=== PATIENT | female | born 1990 | race Caucasian/White ===

== ENCOUNTER → 2016-05-07 | Outpatient (REF) | payer OTHER | LOC: M SFHCWAGY 14:15 | PROVIDERS: ATTEND Family Medicine | DX: Z12.4 Encounter for screening for malignant neoplasm of cervix (principal); Z11.3 Encounter for screening for infections with a predominantly sexual mode of transmission | CPT/HCPCS: 87491; 87591; G0123 ==

== ENCOUNTER → 2019-04-17 | Outpatient (REF) | payer OTHER ==
[2019-04-17 11:43] LABS: HEMATOCRIT 40.7 % (36.0-47.0); HEMOGLOBIN 13.2 g/dl (12.0-15.5); MEAN CORPUSCULAR HEMOGLOBIN 29.7 pg (27.0-33.0); MEAN CORPUSCULAR HGB CONC 32.4 g/dl (32.0-36.5); MEAN CORPUSCULAR VOLUME 91.7 fl (80.0-96.0); PLATELET COUNT, AUTOMATED 191 10^3/uL (150-450); RED BLOOD COUNT 4.44 10^6/uL (4.00-5.40); WHITE BLOOD COUNT 7.2 10^3/uL (4.0-10.0)
[2019-04-17 11:58] LABS: ALBUMIN 3.8 GM/DL (3.2-5.2); ALT/SGPT 14 U/L (12-78); BILIRUBIN,TOTAL 0.4 MG/DL (0.2-1.0); BLOOD UREA NITROGEN 12 MG/DL (7-18); CALCIUM LEVEL 8.7 MG/DL (8.5-10.1); CARBON DIOXIDE LEVEL 22 MEQ/L (21-32); CHLORIDE LEVEL 108 MEQ/L (98-107); CHOLESTEROL LEVEL 176 MG/DL (<200); CHOLESTEROL RISK RATIO 2.046 (<5); CREATININE FOR GFR 0.66 MG/DL (0.55-1.30); GLOMERULAR FILTRATION RATE > 60.0 (>60); GLUCOSE, FASTING 100 MG/DL (70-100); HDL CHOLESTEROL 86 MG/DL (>40); LDL CHOLESTEROL 72 MG/DL (<100); NON-HDL-C 90 MG/DL; SODIUM LEVEL 138 MEQ/L (136-145); TOTAL PROTEIN 6.9 GM/DL (6.4-8.2); TRIGLYCERIDES LEVEL 88 MG/DL (<150)
== END ==
LOC: M SFHCPLAZ 10:06
PROVIDERS: ATTEND Nurse Practitioner Adult Health
DX: Z00.00 Encounter for general adult medical examination without abnormal findings (principal); Z83.49 Family history of other endocrine, nutritional and metabolic diseases; Z13.220 Encounter for screening for lipoid disorders

== ENCOUNTER → 2020-02-06 | Outpatient (REF) | payer OTHER | LOC: M PLALAB 10:41 | PROVIDERS: ATTEND Obstetrics & Gynecology | DX: Z34.01 Encounter for supervision of normal first pregnancy, first trimester (principal); Z3A.00 Weeks of gestation of pregnancy not specified; Z53.9 Procedure and treatment not carried out, unspecified reason ==

== ENCOUNTER → 2020-02-20 | Outpatient (REF) | payer OTHER ==
[2020-02-20 13:03] LABS: HEMATOCRIT 40.3 % (36.0-47.0); HEMOGLOBIN 13.1 g/dl (12.0-15.5); MEAN CORPUSCULAR HEMOGLOBIN 30.2 pg (27.0-33.0); MEAN CORPUSCULAR HGB CONC 32.5 g/dl (32.0-36.5); MEAN CORPUSCULAR VOLUME 92.9 fl (80.0-96.0); PLATELET COUNT, AUTOMATED 242 10^3/uL (150-450); RED BLOOD COUNT 4.34 10^6/uL (4.00-5.40); WHITE BLOOD COUNT 9.9 10^3/uL (4.0-10.0)
[2020-02-20 14:16] LABS: HEPATITIS C VIRUS ABY INDEX < 0.0 INDEX (<0.8); HIV 1&2 SCREEN CENTAUR NEGATIVE (NEGATIVE)
[2020-02-20 14:55] LABS: CHLAMYDIA DNA AMPLIFICATION NEGATIVE (NEGATIVE); GC DNA AMPLIFICATION NEGATIVE (NEGATIVE)
== END ==
LOC: M PLALAB 08:08 → M SFHCADAM 08:20
PROVIDERS: ATTEND Obstetrics & Gynecology
DX: Z34.01 Encounter for supervision of normal first pregnancy, first trimester (principal); Z3A.00 Weeks of gestation of pregnancy not specified

== ENCOUNTER → 2020-03-16 | Outpatient (CLI) | payer SELFPAY | LOC: M LABSMTC 11:05 | PROVIDERS: ATTEND Pediatrics | DX: Z20.828 Contact with and (suspected) exposure to other viral communicable diseases (principal) ==

== ENCOUNTER → 2020-04-14 | Outpatient (CLI) | payer OTHER ==
--- NOTE | 2020-04-15 16:32 | REP ---
INDICATION: ANATOMY COMPARISON: None. TECHNIQUE: Transabdominal obstetrical ultrasound with color Doppler evaluation. FINDINGS: Examination demonstrates a single live intrauterine in cephalic presentation. motion is identified by technologist. Placenta is noted anterior and grade 1 without evidence for placenta previa or abruption. Amniotic fluid volume is normal. Cervix measures 3.7 cm in length and appears closed.. Gestational age by current measurements 19 weeks 4 days with ISHAN 09/04/2020. FHR equals 139 beats per minute. BPD: 4.5 cm 19 weeks 4 days HC: 16.7 cm 19 weeks 3 days AC: 14.2 cm 19 weeks 4 days FL: 2.9 cm 19 weeks 0 days HL: 3.1 cm there is 20 weeks 2 days HC/AC: 1.18 Estimated weight 286 grams (33rdpercentile). Anatomical assessment demonstrates normal structures including cranium, cavum, cerebellum/posterior fossa, facial features, lungs, ventricular outflow tracts, diaphragm, stomach, cord insertion/three-vessel cord, kidneys/bladder, spine, and extremities. Echogenic focus within the left cardiac ventricle likely prominent chordae tendineae. A 3 mm left choroid plexus cyst is identified. IMPRESSION: Single live intrauterine in cephalic presentation demonstrating appropriate estimated weight. Anatomical limitations as noted above warrant follow-up. <Electronically signed by Kervin Chiang > 04/15/20 [id number]
== END ==
LOC: M WHC 13:53
PROVIDERS: ATTEND Specialist
DX: Z34.02 Encounter for supervision of normal first pregnancy, second trimester (principal); Z36.89 Encounter for other specified antenatal screening; Z3A.19 19 weeks gestation of pregnancy

== ENCOUNTER → 2020-06-03 | Outpatient (REF) | payer OTHER | LOC: M PLALAB 09:41 | PROVIDERS: ATTEND Obstetrics & Gynecology | DX: Z3A.26 26 weeks gestation of pregnancy (principal) ==

== ENCOUNTER → 2020-06-17 | Outpatient (REF) | payer OTHER ==
[2020-06-17 17:26] LABS: HEMATOCRIT 34.3 % (36.0-47.0); HEMOGLOBIN 11.5 g/dl (12.0-15.5); MEAN CORPUSCULAR HEMOGLOBIN 31.4 pg (27.0-33.0); MEAN CORPUSCULAR HGB CONC 33.5 g/dl (32.0-36.5); MEAN CORPUSCULAR VOLUME 93.7 fl (80.0-96.0); PLATELET COUNT, AUTOMATED 205 10^3/uL (150-450); RED BLOOD COUNT 3.66 10^6/uL (4.00-5.40); WHITE BLOOD COUNT 12.6 10^3/uL (4.0-10.0)
== END ==
LOC: M PLALAB 15:03 → M SFHCADAM 16:04
PROVIDERS: ATTEND Obstetrics & Gynecology
DX: Z3A.26 26 weeks gestation of pregnancy (principal)

== ENCOUNTER → 2020-06-18 | Outpatient (REF) | payer OTHER | LOC: M PLALAB 13:27 | PROVIDERS: ATTEND Obstetrics & Gynecology | DX: O99.810 Abnormal glucose complicating pregnancy (principal) ==

== ENCOUNTER → 2020-06-24 | Outpatient (CLI) | payer OTHER | LOC: M LAB 06:49 | PROVIDERS: ATTEND Obstetrics & Gynecology | DX: O99.810 Abnormal glucose complicating pregnancy (principal); Z3A.00 Weeks of gestation of pregnancy not specified ==

== ENCOUNTER → 2020-08-12 | Outpatient (REF) | payer OTHER | LOC: M SFHCWAGY 09:55 | PROVIDERS: ATTEND Advanced Practice Midwife | DX: Z34.93 Encounter for supervision of normal pregnancy, unspecified, third trimester (principal); Z3A.36 36 weeks gestation of pregnancy ==

== ENCOUNTER → 2020-09-01 | Outpatient (CLI) | payer OTHER | LOC: M LABSMTC 09:39 | PROVIDERS: ATTEND Specialist | DX: Z36.89 Encounter for other specified antenatal screening (principal); Z20.828 Contact with and (suspected) exposure to other viral communicable diseases; Z3A.39 39 weeks gestation of pregnancy ==

== ENCOUNTER → 2020-09-08 | Outpatient (CLI) | payer OTHER | LOC: M LABSMTC 09:45 | PROVIDERS: ATTEND Specialist | DX: Z20.822 Contact with and (suspected) exposure to COVID-19 (principal) ==

== ENCOUNTER 2020-09-11 04:55 | Inpatient (IN) | payer OTHER ==
[2020-09-11] VITALS (35 sets, daily range): BP systolic 89–120; BP diastolic 50–77
[~2020-09-11] VITALS: Ht 157.5 cm; Wt 65.9 kg
[2020-09-11] MEDS ORDERED: PRENTAB9 PO (05:29)
[2020-09-11] MEDS ORDERED: LIDOCAINE 1% MDV 20ML VIAL INFIL PRN (06:45)
[2020-09-11] MEDS ORDERED: OXYTOCIN DRIP 30 UNITS in IV 1 EA IV PRN (06:45)
[2020-09-11] MEDS ORDERED: OXYTOCIN DRIP 30 UNITS in IV 1 EA IV SCH ×2 (06:45→16:20)
[2020-09-11] MEDS ORDERED: OXYTOCIN INJ 10 UNITS/ML VIAL (J2590) IM PRN (06:45)
[2020-09-11] MEDS ORDERED: METHYLERGONOVINE MALEATE 0.2 MG/ML VIAL (J2210) IM PRN (06:45)
--- NOTE | 2020-09-11 07:22 | HPE ---
HISTORY AND PHYSICAL DATE OF ADMISSION: 09/11/2020 HISTORY OF PRESENT ILLNESS: Bishop is a 29-year-old 1 para 0 at 40 and 3/7th weeks gestation with an EDC of 09/08/2020 based on first trimester ultrasound. She presents to Labor and Delivery today with a report of onset of contractions at about 2000 on 09/10/2020 that progressively worsened overnight and became closer together. She does report some bloody show. Denies leakage of fluid. The fetus has been active. Her care was initiated at [facility] in the first trimester. Her course was complicated by her partner being HSV-2 positive. She denies any signs or symptoms of outbreak for herself. OBSTETRIC HISTORY: Primigravida. OBSTETRIC LABS: A positive, antibody screen negative, syphilis negative, gonorrhea and chlamydia negative, hep B negative, hep C negative, HIV negative, rubella immune. Gestational diabetic screening was abnormal at 142. Three hour glucose tolerance test normal. Fasting 93, one hour 145, two hour 121, three hour 110. Urine culture showed no growth. She is GBS negative and her COVID-19 is negative as well. PAST MEDICAL HISTORY: Depression. Benign skin lesions removed, pre-melanoma removed, irregular menstrual cycles, childhood varicella. PAST SURGICAL HISTORY: Excision of mole. FAMILY HISTORY: Melanoma, basal cell carcinoma, depression. SOCIAL HISTORY: The patient is , her is at bedside and supportive. She is a nonsmoker. She denies alcohol and drug use. She denies any history of sexually transmitted infections and she denies a history of abuse, physical, sexual and emotional. ALLERGIES: Bees. CURRENT MEDICATIONS: vitamin. OBJECTIVE: Temperature 98.4, pulse 71, respirations 14, blood pressure is 119/74. She is alert and oriented x3. She does appear uncomfortable during her contractions. They do palpate moderate. heart rate is 135 with moderate variability, positive accelerations, negative decelerations, contractions appear to be every 3 to 6 minutes. Her abdomen is gravid, cephalic presentation, estimated weight 7 pounds. Sterile vaginal exam: 3 to 4 cm dilated, 90% effaced, -2 station, posterior, normal amount of bloody show with exam. ASSESSMENT: Intrauterine at 40 and 3/7th weeks. heart rate Category 1, labor. PLAN: Admit the patient to Labor and Delivery, routine laboratories, out of bed ad santosh, clear liquid diet at this time. The patient does desire an epidural when she is more uncomfortable with labor. I did review Pitocin augmentation due to the spacing of her contractions. I reviewed risks, benefits and alternatives with the patient and her . All of their questions have been answered and they are agreeable to Pitocin augmentation. She has been verbally consented for emergency surgery and blood products if they are necessary. I do anticipate continued labor progress and a normal spontaneous vaginal delivery.
[2020-09-11] MEDS: LR 1,000 ML IV SCH ×3 (08:15→13:36)
[2020-09-11 08:39] LABS: HEMATOCRIT 36.8 % (36.0-47.0); MEAN CORPUSCULAR HEMOGLOBIN 28.9 pg (27.0-33.0); MEAN CORPUSCULAR HGB CONC 32.6 g/dl (32.0-36.5); MEAN CORPUSCULAR VOLUME 88.7 fl (80.0-96.0); PLATELET COUNT, AUTOMATED 218 10^3/uL (150-450); RED BLOOD COUNT 4.15 10^6/uL (4.00-5.40); WHITE BLOOD COUNT 16.5 10^3/uL (4.0-10.0)
[2020-09-11] MEDS ORDERED: FENTANYL 2MCG/ML ROPIVACAINE 0.2% IN 0.9% NACL 100ML IVBAG As Ordered ONE (08:51)
[2020-09-11] MEDS ORDERED: EPIDURAL/PCA KEYS XX PRN (09:50)
[2020-09-11] MEDS ORDERED: REFRIGERATOR IV KEYS XX PRN (09:50)
[2020-09-11] MEDS ORDERED: diphenhydrAMINE 50MG/ML VIAL (J1200) IV PRN (09:50)
[2020-09-11] MEDS ORDERED: NALOXONE INJ 0.4MG/1ML VIAL (J2310 PER 1MG) IV PRN (09:50)
[2020-09-11] MEDS ORDERED: ONDANSETRON 4MG/2ML VIAL IV PRN (09:50)
[2020-09-11] MEDS ORDERED: EPIDURAL COMMENT XX SCH (09:50)
[2020-09-11] MEDS ORDERED: LACTATED RINGER'S 1000 ML IV PRN (09:50)
[2020-09-11] MEDS ORDERED: FENTANYL/ROPIVACAINE/NACL BAG 100 ML EPIDURAL SCH (09:50)
[2020-09-11] MEDS: ePHEDrine SULFATE 25 MG/5 ML(5MG/ML) SYRINGE IV PRN ×2 (11:11→12:50)
[2020-09-11] MEDS ORDERED: DOCUSATE SODIUM 100MG CAPSULE PO PRN (16:20)
[2020-09-11] MEDS ORDERED: ACETAMINOPHEN 500 MG TAB PO PRN (16:20)
[2020-09-11] MEDS ORDERED: ANUSOL HC CREAM 30GM TOP PRN (16:20)
[2020-09-11] MEDS ORDERED: MOM 30ML SUSPENSION UDC PO PRN (16:20)
[2020-09-11] MEDS ORDERED: DIBUCAINE 1% OINTMENT 30GM TOP PRN (16:20)
[2020-09-11] MEDS ORDERED: RHOGAM 300 MCG (1500 IU) INJ (J2790) IM SCH (16:20)
[2020-09-11] MEDS ORDERED: ACETAMINOPHEN TAB 650MG DOSE (2X325MG) PO PRN (16:20)
[2020-09-11] MEDS ORDERED: IBUPROFEN 800 MG TAB PO PRN (16:20)
[2020-09-11] MEDS ORDERED: MEASLES,MUMPS,RUBELLA VACCINE INJ (MMR-II) (90707) SC SCH (16:20)
[2020-09-11] MEDS ORDERED: METHYLERGONOVINE MALEATE 0.2 MG TAB PO PRN (16:20)
--- NOTE | 2020-09-11 16:32 | DNPDOC ---
[facility] Delivery Note Delivery Note DATE OF DELIVERY: 09/11/2020 TIME OF : 1553 GENDER: Male. APGARS: 9 and 9. WEIGHT: 3310 grams or 7 pounds 5ounces. LACERATIONS:1MLL ANESTHESIA: epidural ESTIMATED BLOOD LOSS: 200ml COUNTS: 5 laparotomy sponges accounted for prior to after delivery. 1 sharps removed from delivery field. DELIVERY NOTE: On 09/11/2020 at [id number], a 29-year-old 1 now para 1, had a spontaneous vaginal delivery of viable male infant, Apgars, 9 and 9 and weight 3310 g or 7 lbs. 5 oz. Head was delivered occiput anterior (OA), followed by delivery of right nuchal arm, shoulders and corpus. Infant was handed to mom with a good cry. Cord was clamped times two and was cut by sup port person under my direction. Placenta was then drained and delivered grossly intact. A premixed bag of 500 mL of normal saline with 30 units of Pitocin was then bolused along with uterine massage until the uterus was firm. On inspection there was a 1MLL that was repaired with 3-0 Vicryl after infusion with 1% lidocaine. On reinspection, cervix, vagina, perineum was grossly intact and hemostatic. Mom and baby in recovery on stable condition. CHIP MAYA MD. Sep 11, 2020 16:32
[2020-09-12] MEDS: IBUPROFEN 600MG TAB PO PRN ×2 (00:37→12:42)
[2020-09-12 06:05] VITALS: BP 108/58
[2020-09-12] MEDS: PRENATAL VITAMINS CHEWABLE TABLET PO SCH (07:57)
--- NOTE | 2020-09-12 08:58 | IPNPDOC ---
Text Note Date of Service The patient was seen on 09/12/20. NOTE PP #1 Feels well. Adequate pain management. Voiding VSS, afebrile, normotensive Breasts soft, nipples intact Fundus firm, NT, down 1 FB Lochia rubra light without odor Perineum intact PP #1 routine care. anticipate D/C in am VS,Fishbone, I+O VS, Fishbone, I+O Vital Signs Date Time Temp Pulse Resp B/P (MAP) Pulse Ox O2 Delivery O2 Flow Rate FiO2 09/12/20 06:05 98.6 82 18 108/58 (75) I&O- Last 24 Hours up to 6 AM 09/12/20 06:00 Intake Total 2732.7 ml Output Total 1775 ml Balance 957.7 ml Anna Marcelino CNM Sep 12, 2020 08:58
[2020-09-12 18:04] VITALS: BP 112/60
[2020-09-13 06:00] VITALS: BP 100/52
[2020-09-13] MEDS: PRENATAL VITAMINS CHEWABLE TABLET PO SCH (08:48)
== END 2020-09-13 10:43 | disposition home or self-care (01) | DRG 807 ==
LOC: M LDO 04:55 → M LDI 06:38 → M OBS 18:55
PROVIDERS: ADMIT Advanced Practice Midwife; ATTEND Obstetrics & Gynecology
PROC: 10E0XZZ Delivery of Products of Conception, External Approach (ICD-10-PCS; principal; 2020-09-11)
PROC: 0HQ9XZZ Repair Perineum Skin, External Approach (ICD-10-PCS; 2020-09-11)
DX: O48.0 Post-term pregnancy (principal); Z37.0 Single live birth; Z3A.40 40 weeks gestation of pregnancy; O70.0 First degree perineal laceration during delivery; O69.82X0 Labor and delivery complicated by other cord entanglement, without compression, not applicable or unspecified

== ENCOUNTER → 2021-03-16 | Outpatient (REF) ==
[~2021-03-16] MED LIST: PRENTAB9 PO
== END ==
LOC: M LABSMTC 13:13
PROVIDERS: ATTEND Pediatrics
DX: Z20.822 Contact with and (suspected) exposure to COVID-19 (principal)

== ENCOUNTER 2021-12-29 12:37 | Emergency (ER) | payer OTHER ==
[~2021-12-29] VITALS: Ht 157.5 cm; Wt 50.1 kg
[2021-12-29 14:07] LABS: BASO % 0.3 % (0.0-1.0); EOS % 0.4 % (0.0-3.0); HEMATOCRIT 39.5 % (36.0-47.0); LYMPH # 1.9 10^3/uL (1.5-5.0); MEAN CORPUSCULAR HEMOGLOBIN 29.6 pg (27.0-33.0); MEAN CORPUSCULAR HGB CONC 32.9 g/dl (32.0-36.5); MONO # 0.5 10^3/uL (0.0-0.8); MONO % 5.2 % (2.0-8.0); NEUTROPHILS # 7.4 10^3/uL (1.5-8.5); NEUTROPHILS % 74.8 % (36.0-66.0); PLATELET COUNT, AUTOMATED 264 10^3/uL (150-450); RED BLOOD COUNT 4.39 10^6/uL (4.00-5.40); WHITE BLOOD COUNT 9.9 10^3/uL (4.0-10.0)
[2021-12-29 14:50] LABS: BLOOD UREA NITROGEN 6 MG/DL (7-18); CALCIUM LEVEL 9.1 MG/DL (8.5-10.1); CARBON DIOXIDE LEVEL 26 MEQ/L (21-32); CHLORIDE LEVEL 110 MEQ/L (98-107); CREATININE FOR GFR 0.66 MG/DL (0.55-1.30); GLOMERULAR FILTRATION RATE > 60.0 (>60); GLUCOSE, FASTING 116 MG/DL (70-100); HCG, SERUM QUANTITATIVE 60 MIU/ML; POTASSIUM SERUM 3.7 MEQ/L (3.5-5.1); SODIUM LEVEL 140 MEQ/L (136-145)
[2021-12-29 15:53] VITALS: BP 127/80
== END 2021-12-29 15:53 | disposition home or self-care (01) ==
LOC: M ED 12:37
DX: O20.9 Hemorrhage in early pregnancy, unspecified (principal); Z91.030 Bee allergy status; Z79.810 Long term (current) use of selective estrogen receptor modulators (SERMs); Z3A.01 Less than 8 weeks gestation of pregnancy

== ENCOUNTER → 2021-12-31 | Outpatient (CLI) | payer OTHER | LOC: M LABDRWAD 15:12 | PROVIDERS: ATTEND Physician Assistant Medical | DX: O46.90 Antepartum hemorrhage, unspecified, unspecified trimester (principal); Z3A.00 Weeks of gestation of pregnancy not specified ==

== ENCOUNTER → 2022-01-06 | Outpatient (REF) | payer OTHER | LOC: M SFHCADAM 14:54 | PROVIDERS: ATTEND Obstetrics & Gynecology | DX: O36.80X0 Pregnancy with inconclusive fetal viability, not applicable or unspecified (principal); Z3A.00 Weeks of gestation of pregnancy not specified ==

== ENCOUNTER 2022-03-23 19:08 | Emergency (ER) | payer OTHER ==
[~2022-03-23] VITALS: Ht 157.5 cm; Wt 50.0 kg
[2022-03-23 19:10] VITALS: BP 113/73
[2022-03-23 21:45] LABS: BASO # 0.1 10^3/uL (0.0-0.2); BASO % 0.4 % (0.0-1.0); EOS # 0.2 10^3/uL (0.0-0.5); EOS % 1.4 % (0.0-3.0); HEMATOCRIT 36.8 % (36.0-47.0); HEMOGLOBIN 12.6 g/dl (12.0-15.5); LYMPH # 3.5 10^3/uL (1.5-5.0); LYMPH % 31.3 % (24.0-44.0); MEAN CORPUSCULAR HGB CONC 34.2 g/dl (32.0-36.5); MEAN CORPUSCULAR VOLUME 87.6 fl (80.0-96.0); MONO # 0.6 10^3/uL (0.0-0.8); MONO % 5.6 % (2.0-8.0); NEUTROPHILS # 6.8 10^3/uL (1.5-8.5); PLATELET COUNT, AUTOMATED 264 10^3/uL (150-450); WHITE BLOOD COUNT 11.1 10^3/uL (4.0-10.0)
[2022-03-23 22:18] LABS: BLOOD UREA NITROGEN 12 MG/DL (9-23); CARBON DIOXIDE LEVEL 23 MMOL/L (20-31); CHLORIDE LEVEL 105 MMOL/L (98-107); CREATININE FOR GFR 0.58 MG/DL (0.55-1.30); GLOMERULAR FILTRATION RATE > 60.0 (>60); GLUCOSE, FASTING 89 MG/DL (60-100); POTASSIUM SERUM 3.8 MMOL/L (3.5-5.1); SODIUM LEVEL 137 MMOL/L (136-145)
[2022-03-24 00:08] LABS: HCG, SERUM QUANTITATIVE 13476.5 MIU/ML (<4.2)
== END 2022-03-23 23:46 | disposition left against medical advice (07) ==
LOC: M ED 19:08
DX: Z53.21 Procedure and treatment not carried out due to patient leaving prior to being seen by health care provider (principal)

== ENCOUNTER → 2022-04-29 | Outpatient (REF) | payer OTHER ==
[2022-04-29 16:30] LABS: HEMATOCRIT 38.6 % (36.0-47.0); HEMOGLOBIN 12.6 g/dl (12.0-15.5); MEAN CORPUSCULAR HEMOGLOBIN 29.5 pg (27.0-33.0); MEAN CORPUSCULAR HGB CONC 32.6 g/dl (32.0-36.5); MEAN CORPUSCULAR VOLUME 90.4 fl (80.0-96.0); PLATELET COUNT, AUTOMATED 227 10^3/uL (150-450); RED BLOOD COUNT 4.27 10^6/uL (4.00-5.40)
[2022-04-29 23:47] LABS: ALKALINE PHOSPHATASE 40 U/L (46-116); ALT/SGPT 11 U/L (7.0-40); AST/SGOT 15 U/L (<34); BILIRUBIN,TOTAL 0.5 MG/DL (0.3-1.2); BLOOD UREA NITROGEN 11 MG/DL (9-23); CARBON DIOXIDE LEVEL 26 MMOL/L (20-31); CHLORIDE LEVEL 104 MMOL/L (98-107); CHOLESTEROL LEVEL 186 MG/DL (<200); CHOLESTEROL RISK RATIO 2.04 (<5); CREATININE FOR GFR 0.62 MG/DL (0.55-1.30); GLOMERULAR FILTRATION RATE > 60.0 (>60); GLUCOSE, FASTING 84 MG/DL (60-100); NON-HDL-C 95 MG/DL; POTASSIUM SERUM 4.4 MMOL/L (3.5-5.1); SODIUM LEVEL 138 MMOL/L (136-145); TOTAL PROTEIN 7.1 G/DL (5.7-8.2); TRIGLYCERIDES LEVEL 90 MG/DL (<150)
== END ==
LOC: M SFHCPLAZ 15:04
PROVIDERS: ATTEND Nurse Practitioner Adult Health
DX: Z00.00 Encounter for general adult medical examination without abnormal findings (principal); Z13.220 Encounter for screening for lipoid disorders; Z83.49 Family history of other endocrine, nutritional and metabolic diseases

== ENCOUNTER → 2022-04-29 | Outpatient (CLI) | payer OTHER ==
[2022-05-04 16:08] LABS: BETA-2 GLYCOPROTEIN I ABY IGA <9 (0-25); BETA-2 GLYCOPROTEIN I ABY IGG <9 (0-20); BETA-2 GLYCOPROTEIN I ABY IGM <9 (0-32); CARDIOLIPIN IGA ANTIBODY <9 APL U/mL (0-11); CARDIOLIPIN IGG ANTIBODY <9 GPL U/mL (0-14); CARDIOLIPIN IGM ANTIBODY <9 MPL U/mL (0-12)
== END ==
LOC: M LABDRWAD 15:19
PROVIDERS: ATTEND Obstetrics & Gynecology
DX: N96 Recurrent pregnancy loss (principal)

== ENCOUNTER → 2022-07-08 | Outpatient (CLI) | payer OTHER ==
[2022-07-08 15:15] LABS: HEMATOCRIT 34.6 % (36.0-47.0); HEMOGLOBIN 11.6 g/dl (12.0-15.5); MEAN CORPUSCULAR HEMOGLOBIN 29.8 pg (27.0-33.0); MEAN CORPUSCULAR HGB CONC 33.5 g/dl (32.0-36.5); MEAN CORPUSCULAR VOLUME 88.9 fl (80.0-96.0); PLATELET COUNT, AUTOMATED 227 10^3/uL (150-450); RED BLOOD COUNT 3.89 10^6/uL (4.00-5.40); WHITE BLOOD COUNT 12.8 10^3/uL (4.0-10.0)
[2022-07-08 16:17] LABS: HIV 1&2 SCREEN ATELLICA NEGATIVE (NEGATIVE)
[2022-07-08 16:26] LABS: HEPATITIS C VIRUS ABY INDEX < 0.0 INDEX (<0.8)
[2022-07-08 16:39] LABS: GC DNA AMPLIFICATION NEGATIVE (NEGATIVE)
== END ==
LOC: M PLALAB 14:26
PROVIDERS: ATTEND Advanced Practice Midwife
DX: Z34.81 Encounter for supervision of other normal pregnancy, first trimester (principal)

== ENCOUNTER → 2022-09-08 | Outpatient (CLI) | payer OTHER | LOC: M WHC 14:03 | PROVIDERS: ATTEND Specialist | DX: Z34.82 Encounter for supervision of other normal pregnancy, second trimester (principal); Z3A.19 19 weeks gestation of pregnancy ==

== ENCOUNTER → 2022-10-25 | Outpatient (CLI) | payer OTHER | LOC: M WHC 06:36 | PROVIDERS: ATTEND Advanced Practice Midwife | DX: Z34.82 Encounter for supervision of other normal pregnancy, second trimester (principal) ==

== ENCOUNTER → 2022-10-29 | Outpatient (CLI) | payer OTHER ==
[2022-10-29 14:10] LABS: HEMATOCRIT 30.6 % (36.0-47.0); HEMOGLOBIN 9.9 g/dl (12.0-15.5); MEAN CORPUSCULAR HEMOGLOBIN 30.4 pg (27.0-33.0); MEAN CORPUSCULAR HGB CONC 32.4 g/dl (32.0-36.5); MEAN CORPUSCULAR VOLUME 93.9 fl (80.0-96.0); PLATELET COUNT, AUTOMATED 220 10^3/uL (150-450); RED BLOOD COUNT 3.26 10^6/uL (4.00-5.40); WHITE BLOOD COUNT 12.7 10^3/uL (4.0-10.0)
[2022-10-29 15:35] LABS: GC DNA AMPLIFICATION NEGATIVE (NEGATIVE)
== END ==
LOC: M PLALAB 10:25
PROVIDERS: ATTEND Obstetrics & Gynecology
DX: Z34.92 Encounter for supervision of normal pregnancy, unspecified, second trimester (principal)

== ENCOUNTER → 2023-01-05 | Outpatient (CLI) | payer OTHER ==
[~2023-01-05] MED LIST changes: +COLA100C5 PO; +IRON1TAB2 PO
[2023-01-05 16:14] LABS: HEMATOCRIT 32.8 % (36.0-47.0); HEMOGLOBIN 10.8 g/dl (12.0-15.5); MEAN CORPUSCULAR HEMOGLOBIN 30.5 pg (27.0-33.0); MEAN CORPUSCULAR HGB CONC 32.9 g/dl (32.0-36.5); MEAN CORPUSCULAR VOLUME 92.7 fl (80.0-96.0); PLATELET COUNT, AUTOMATED 248 10^3/uL (150-450); RED BLOOD COUNT 3.54 10^6/uL (4.00-5.40); WHITE BLOOD COUNT 13.3 10^3/uL (4.0-10.0)
== END ==
LOC: M PLALAB 14:07
PROVIDERS: ATTEND Obstetrics & Gynecology
DX: Z34.03 Encounter for supervision of normal first pregnancy, third trimester (principal); Z3A.00 Weeks of gestation of pregnancy not specified

== ENCOUNTER 2023-02-02 00:51 | Inpatient (IN) | payer OTHER ==
[~2023-02-02] VITALS: Ht 157.5 cm; Wt 67.1 kg
[2023-02-02] VITALS (49 sets, daily range): BP systolic 80–133; BP diastolic 50–78; O2SAT 98–100
[2023-02-02] MEDS ORDERED: LR 1,000 ML IV ONE (01:20)
[2023-02-02 01:56] LABS: BASO # 0.1 10^3/uL (0.0-0.2); BASO % 0.4 % (0.0-1.0); EOS # 0.1 10^3/uL (0.0-0.5); HEMOGLOBIN 11.6 g/dl (12.0-15.5); LYMPH # 2.1 10^3/uL (1.5-5.0); LYMPH % 16.2 % (24.0-44.0); MEAN CORPUSCULAR HEMOGLOBIN 30.1 pg (27.0-33.0); MEAN CORPUSCULAR HGB CONC 33.1 g/dl (32.0-36.5); MEAN CORPUSCULAR VOLUME 90.7 fl (80.0-96.0); MONO # 1.1 10^3/uL (0.0-0.8); MONO % 8.2 % (2.0-8.0); NEUTROPHILS # 9.5 10^3/uL (1.5-8.5); NEUTROPHILS % 73.6 % (36.0-66.0); PLATELET COUNT, AUTOMATED 250 10^3/uL (150-450); RED BLOOD COUNT 3.86 10^6/uL (4.00-5.40); WHITE BLOOD COUNT 12.9 10^3/uL (4.0-10.0)
[2023-02-02] MEDS ORDERED: OXYTOCIN DRIP 30 UNITS in IV 1 EA IV PRN (02:00)
[2023-02-02] MEDS ORDERED: LIDOCAINE 1% MDV 20ML VIAL INFIL PRN (02:00)
[2023-02-02] MEDS ORDERED: EPIDURAL/PCA KEYS XX PRN (02:25)
[2023-02-02] MEDS ORDERED: diphenhydrAMINE 50MG/ML VIAL IV PRN (02:25)
[2023-02-02] MEDS ORDERED: ONDANSETRON 4MG 2ML VIAL IV PRN (02:25)
[2023-02-02] MEDS ORDERED: NALOXONE INJ 0.4MG/1ML VIAL IV PRN (02:25)
[2023-02-02] MEDS: LR 500 ML IV PRN ×2 (02:26→09:50)
[2023-02-02] MEDS: FENTANYL/ROPIVACAINE/NACL BAG 100 ML EPIDURAL SCH ×2 (02:52→11:33)
[2023-02-02] MEDS: LR 1,000 ML IV SCH ×2 (04:42→10:11)
[2023-02-02] MEDS: ePHEDrine SULFATE 25 MG/5 ML(5MG/ML) SYRINGE IVP PRN ×3 (09:37→09:48)
[2023-02-02] MEDS ORDERED: OXYTOCIN DRIP 30 UNITS in IV 1 EA IV SCH (09:45)
[2023-02-02] MEDS ORDERED: HOME MED LIST COMPLETE! XX SCH (10:45)
[2023-02-02 14:54] LABS: CORD GAS ABE A -19.4; CORD GAS HCO3 A 14.1 MMOL/L; CORD GAS O2 SAT A 27.3 %; CORD GAS PO2 A 20.4 mmHg; CORD GAS SBC A 9.7 MMOL/L; CORD GAS TCO2 A 16.2 MMOL/L
[2023-02-02 14:59] LABS: CORD GAS ABE V -13.6; CORD GAS HCO3 V 15.6 MMOL/L; CORD GAS O2 SAT V 53.1 %; CORD GAS PCO2 V 48.2 mmHg; CORD GAS PH A 6.936 UNITS; CORD GAS PH V 7.129 UNITS; CORD GAS PO2 V 25.9 mmHg; CORD GAS SBC V 13.4 MMOL/L; CORD GAS TCO2 V 17.1 MMOL/L
[2023-02-02] MEDS ORDERED: AMPICILLIN SOD/SULBACTAM SOD 3 GM in D5W MINI-BAG PLUS 100 ML IV ONE (15:40)
[2023-02-02] MEDS ORDERED: MOM 30ML SUSPENSION UDC PO PRN (15:40)
[2023-02-02] MEDS ORDERED: ACETAMINOPHEN TAB 650MG DOSE (2X325MG) PO PRN (15:40)
[2023-02-02] MEDS ORDERED: RHOGAM 300MCG (1500IU) INJ IM SCH (15:40)
[2023-02-02] MEDS ORDERED: DOCUSATE SODIUM 100MG CAPSULE PO PRN (15:40)
[2023-02-02] MEDS ORDERED: ANUSOL HC CREAM 30GM TOP PRN (15:40)
[2023-02-02] MEDS ORDERED: METHYLERGONOVINE MALEATE 0.2MG/ML 1ML VIAL IM PRN (15:40)
[2023-02-02] MEDS ORDERED: DIBUCAINE 1% OINTMENT 30GM TOP PRN (15:40)
[2023-02-02] MEDS: IBUPROFEN 800 MG TAB PO PRN (17:14)
[2023-02-02] MEDS: ACETAMINOPHEN 500 MG TAB PO PRN (17:57)
[2023-02-03] MEDS: IBUPROFEN 800 MG TAB PO PRN ×2 (02:24→11:33)
[2023-02-03] MEDS: ACETAMINOPHEN 500 MG TAB PO PRN ×2 (04:01→15:13)
[2023-02-03 06:00] VITALS: BP 104/56; O2SAT 100
[2023-02-03] MEDS: PRENATAL VITAMINS CHEWABLE TABLET PO SCH (09:00)
[2023-02-03 18:00] VITALS: BP 109/56; O2SAT 98
[2023-02-03] MEDS: IBUPROFEN 600MG TAB PO PRN (21:00)
[2023-02-04] MEDS: IBUPROFEN 600MG TAB PO PRN (05:13)
[2023-02-04 06:00] VITALS: BP 108/60; O2SAT 100
[2023-02-04] MEDS: PRENATAL VITAMINS CHEWABLE TABLET PO SCH (07:46)
[2023-02-04] MEDS: ACETAMINOPHEN 500 MG TAB PO PRN (08:48)
[2023-02-04] MEDS ORDERED: MEASLES,MUMPS,RUBELLA VACCINE INJ (MMR-II) SC.IMMUN ONE (09:00)
== END 2023-02-04 16:20 | disposition home or self-care (01) | DRG 806 ==
LOC: M LDO 00:51 → M LDI 01:20 → M OBS 17:37
PROVIDERS: ADMIT Specialist; ATTEND Specialist
PROC: 10E0XZZ Delivery of Products of Conception, External Approach (ICD-10-PCS; principal; 2023-02-02)
PROC: 0KQM0ZZ Repair Perineum Muscle, Open Approach (ICD-10-PCS; 2023-02-02)
DX: O48.0 Post-term pregnancy (principal); Z37.0 Single live birth; O44.23 Partial placenta previa NOS or without hemorrhage, third trimester; Z3A.40 40 weeks gestation of pregnancy; Z91.030 Bee allergy status; Z79.899 Other long term (current) drug therapy; O66.0 Obstructed labor due to shoulder dystocia; O42.12 Full-term premature rupture of membranes, onset of labor more than 24 hours following rupture; O70.1 Second degree perineal laceration during delivery

== ENCOUNTER → 2024-01-13 | Outpatient (REF) | payer OTHER ==
[2024-01-18 16:32] LABS: HPV APTIMA Not Detected (Not Detected)
== END ==
LOC: M PLALAB 14:58
PROVIDERS: ATTEND Advanced Practice Midwife
DX: Z12.4 Encounter for screening for malignant neoplasm of cervix (principal); R87.610 Atypical squamous cells of undetermined significance on cytologic smear of cervix (ASC-US)
CPT/HCPCS: 87624; G0123

== ENCOUNTER → 2024-04-26 | Outpatient (CLI) | payer OTHER ==
[2024-04-26 18:57] LABS: HEMATOCRIT 44.1 % (36.0-47.0); HEMOGLOBIN 14.4 g/dl (12.0-15.5); MEAN CORPUSCULAR HEMOGLOBIN 28.8 pg (27.0-33.0); MEAN CORPUSCULAR HGB CONC 32.7 g/dl (32.0-36.5); MEAN CORPUSCULAR VOLUME 88.2 fl (80.0-96.0); PLATELET COUNT, AUTOMATED 327 10^3/uL (150-450); WHITE BLOOD COUNT 7.6 10^3/uL (4.0-10.0)
[2024-04-26 18:59] LABS: HEMATOCRIT 43.3 % (36.0-47.0)
[2024-04-26 19:23] LABS: ALBUMIN 3.8 G/DL (3.2-5.2); ALKALINE PHOSPHATASE 39 U/L (35-104); ALT/SGPT 9 U/L (7.0-40); AST/SGOT 12 U/L (<34); BILIRUBIN,TOTAL 0.6 MG/DL (0.3-1.2); BLOOD UREA NITROGEN 10 MG/DL (9-23); CALCIUM LEVEL 9.6 MG/DL (8.5-10.1); CARBON DIOXIDE LEVEL 31 MMOL/L (20-31); CHLORIDE LEVEL 105 MMOL/L (98-107); CREATININE FOR GFR 0.62 MG/DL (0.55-1.30); GLOMERULAR FILTRATION RATE > 60.0 (>60); GLUCOSE, FASTING 88 MG/DL (60-100); IRON (FE) 102 UG/DL (50-170); PERCENT SATURATION 29.5 % (13.2-45.0); POTASSIUM SERUM 4.5 MMOL/L (3.5-5.1); SODIUM LEVEL 142 MMOL/L (136-145); TOTAL IRON BINDING CAPACITY 346 UG/DL (250-425); TOTAL PROTEIN 7.1 G/DL (5.7-8.2)
[2024-04-26 19:26] LABS: FERRITIN 24.9 NG/ML (7.3-270.7)
[2024-04-26 19:27] LABS: THYROID STIMULATING HORMONE 1.214 uIU/ML (0.55-4.78)
[2024-04-26 19:28] LABS: FREE T4 1.21 NG/DL (0.89-1.76)
== END ==
LOC: M PLALAB 15:33
PROVIDERS: ATTEND Nurse Practitioner Adult Health
DX: Z00.00 Encounter for general adult medical examination without abnormal findings (principal); Z83.49 Family history of other endocrine, nutritional and metabolic diseases; R53.83 Other fatigue; E55.9 Vitamin D deficiency, unspecified